=== PATIENT | female | born 1980 | race Caucasian/White ===

== ENCOUNTER 2017-11-25 19:34 | Emergency (ER) | payer OTHER ==
[~2017-11-25] VITALS: Ht 162.6 cm; Wt 79.0 kg
[~2017-11-25 19:34] MED LIST: ATIVAN0.5 MG PO; CAPECITABINE500 MG PO; COMPAZINE10 MG PO; GLYBURIDE5 MG PO; IBUPROFEN800 MG PO; Motrin PO; NOHOMEMEDS; PERCOCET 5/31 TABLET PO; PRENATAL TABLE1 EAC3 PO; PRILOSEC40 MG PO; Percocet 5/325,Endoc PO; ROXICODONE5 MG PO; XANAX0.5 MG PO; ZANTAC150 MG PO; ZOFRAN8 MG PO
[2017-11-25 22:18] VITALS: BP 117/77
== END 2017-11-25 22:19 | disposition home or self-care (01) ==
LOC: EME 19:34
DX: R22.41 Localized swelling, mass and lump, right lower limb (principal); M79.604 Pain in right leg; Z98.890 Other specified postprocedural states; Z85.3 Personal history of malignant neoplasm of breast; Z90.13 Acquired absence of bilateral breasts and nipples; Z87.891 Personal history of nicotine dependence; Z88.2 Allergy status to sulfonamides; Z88.1 Allergy status to other antibiotic agents
CPT/HCPCS: 93971; 99281; 99284